=== PATIENT | female | born 1990 | race Caucasian/White ===

== ENCOUNTER 2020-11-22 00:51 | Emergency (ER) | payer BC ==
[2020-11-22 04:08] LABS: HEMOGLOBIN 13.4 gm/dl (12.3-15.3); RED BLOOD COUNT 4.26 M/UL (4.00-5.10); WHITE BLOOD COUNT 8.5 K/UL (4.5-11.0)
[2020-11-22 04:26] LABS: BUN/CREATININE RATIO 15 (0-10)
== END 2020-11-22 05:00 | disposition home or self-care (01) ==
LOC: ER1 00:51
PROVIDERS: Emergency Medicine
DX: O20.0 Threatened abortion (principal); Z3A.01 Less than 8 weeks gestation of pregnancy
CPT/HCPCS: 80053; 81001; 84702; 85025; 87086; 99284